=== PATIENT | male | born 1975 | race Caucasian/White ===

== ENCOUNTER → 2019-02-25 | Day surgery (SDC) | payer OTHER ==
[~2019-02-25] MED LIST: BUPR1FIL5 SL; BUPR300T3 PO; CLON1TAB11 PO; DEXT20TA2 PO; IV RINGERS,LACTATED 1000ML 1,000 ML IV SCH; PROPOFOL 60 ML IV ONE; VORT10TA PO
[2019-02-25 08:45] VITALS: BP 114/68
== END | disposition home or self-care (01) ==
LOC: SURG 06:31
PROVIDERS: ATTEND Internal Medicine Gastroenterology
DX: K22.2 Esophageal obstruction (principal); K64.0 First degree hemorrhoids; F41.9 Anxiety disorder, unspecified; M19.90 Unspecified osteoarthritis, unspecified site; J45.909 Unspecified asthma, uncomplicated; F32.9 Major depressive disorder, single episode, unspecified; K21.9 Gastro-esophageal reflux disease without esophagitis; Z80.0 Family history of malignant neoplasm of digestive organs; Z79.899 Other long term (current) drug therapy
CPT/HCPCS: 43235; 43450; 45378; J2704